=== PATIENT | male | born 1985 | race Caucasian/White ===

== ENCOUNTER 2018-05-06 10:50 | Emergency (ER) | payer BC ==
--- NOTE | 2018-05-06 12:05 | RAD ---
INDICATION: Right renal colic. COMPARISON: There are no relevant prior studies available for comparison. TECHNIQUE: A CT scan of the abdomen and pelvis was performed without intravenous and without oral contrast. Contiguous axial sections were obtained from the lung bases through the symphysis pubis. Images were reconstructed in the coronal and sagittal planes. FINDINGS: LUNG BASES: The lung bases are clear. No pleural effusion is present. LIVER: The liver is normal in size. No significant focal abnormality is seen on this noncontrast study. GALLBLADDER: No calcified gallstones are seen. BILE DUCTS: No intra or extrahepatic ductal distention is seen. SPLEEN: The spleen is normal in size without significant focal abnormality. PANCREAS: The pancreas is normal in size. No ductal distention or calcifications are seen. ADRENAL GLANDS: The adrenal glands are normal in size. KIDNEYS: The kidneys are normal in size. No renal calculi or hydronephrosis is seen. There are several calcifications within the pelvis on the left side limiting the exam slightly although no ureteral or bladder calculi are seen. AORTA: The aorta is normal in caliber without significant calcific plaque. LYMPH NODES: No significantly enlarged lymph nodes are seen. BOWEL: The stomach, small and large bowel appear nondistended. The appendix appears to be within normal limits. There are scattered diverticula within the colon. There is no evidence for diverticulitis or colitis. PELVIC ORGANS: No bladder wall thickening is seen. The prostate gland appears mildly enlarged. PERITONEUM: No free intraperitoneal air or fluid is seen. BONES: No significant focal osseous abnormality is seen. IMPRESSION: NO EVIDENCE FOR ACUTE FINDING.
--- NOTE | 2018-05-06 12:13 | RAD ---
INDICATION: Right testicular pain. COMPARISON: There are no relevant prior studies available for comparison. TECHNIQUE: Multiple real-time images of the testicles were obtained including color Doppler images and Doppler tracings. FINDINGS: The right testicle is mildly enlarged and heterogeneous in echogenicity. The left testicle appears to be within normal limits in size without focal abnormality. The right testicle measured 4.9 x 2.6 x 3.3 cm and the left testicle measured 1.1 x 2.6 x 2.4 cm. There is increased vascular flow throughout the right testicle. There appears to be normal vascular flow within the left testicle. There appears to be symmetric vascular flow to the epididymides. No hydrocele is present. There is a 1.5 cm left epididymal head cyst. IMPRESSION: HETEROGENEOUS SLIGHTLY ENLARGED RIGHT TESTICLE WITH INCREASED VASCULARITY. CONSIDER ORCHITIS LESS LIKELY A NEOPLASTIC PROCESS. RECOMMEND UROLOGIC CONSULTATION AND FOLLOW-UP ULTRASOUND STUDIES TO DEMONSTRATE RESOLUTION.
[2018-05-06 12:21] LABS: ABS Basophils 0 10^3/ul (0-0.2); ABS Eosinophils 0 10^3/ul (0-0.6); ABS Lymphocytes 1.3 10^3/ul (1.0-4.8); ABS Monocytes 0.7 10^3/ul (0-0.8); ABS Neutrophils 5.7 10^3/ul (1.5-7.7); ABS Nucleated RBC 0 10^3/ul; Eosinophil % 0.4 % (0-6); Hematocrit 40 % (42-52); Hemoglobin 13.8 g/dl (14.0-18.0); Lymphocyte % 17.1 % (25-47); Mean Corpuscular HGB Conc 34 g/dl (31-36); Mean Corpuscular Hemoglobin 31 pg (27-31); Mean Corpuscular Volume 90 fL (80-94); Mean Platelet Volume 8.6 um3 (7.4-10.4); Nucleated Red Blood Cells % 0.1; Platelet Count 194 10^3/ul (150-450); Red Blood Count 4.48 10^6/ul (4.00-5.40); Red Cell Distribution Width 13 % (10.5-15); White Blood Count 7.8 10^3/ul (3.5-10.8)
[2018-05-06 12:37] LABS: EGFR Non-African American 104.6 (>60)
[2018-05-06 12:42] LABS: Urine Appearance Clear; Urine Blood Negative (Negative); Urine Color Colorless; Urine Ketones Negative (Negative); Urine Protein Negative (Negative); Urine Specific Gravity 1.002 (1.010-1.030); Urine Urobilinogen Negative (Negative)
--- NOTE | 2018-05-06 12:50 | ED ---
GI/ HPI - HPI Summary HPI Summary: Patient is a 32 y/o M w/ c/o testicular discomfort and lower abdomen onsetting 11 days ago. He states that his son dropped a phone on his testicules and he has been experiencing discomfort since. He notes that his testicles feel swollen. Patient went to and states that he was told to come to ED for ultrasound. He reports that UA done at was negative. He denies burning/pain with urination or ejaculation. In room, associated severity is rated 3/10. On triage movement, sleeping on stomach is noted to aggravate Sx, nothing is reported to alleviate Sx. Home medications and allergies are reviewed. - History of Current Complaint Chief Complaint: EDAbdPain Time Seen by Provider: 05/06/18 11:09 Stated Complaint: ABD/TESTICULAR PAIN Hx Obtained From: Patient Onset/Duration: Started Days Ago - 11 days ago, Still Present Timing: Constant, Lasting Days - 11 days ago Current Severity: Mild - 3/10 Pain Intensity: 3 Additional Locations for Males: Testicles Associated Signs and Symptoms: Positive: Abdominal Pain - lower, Other: - No pain/burning with ejaculation, reports testicular swelling. Negative: Dysuria Aggravating Factor(s): Movement, Movement Alleviating Factor(s): Nothing - Allergy/Home Medications Allergies/Adverse Reactions: Allergies Allergy/AdvReac Type Severity Reaction Status Date / Time No Known Allergies Allergy Verified 05/06/18 11:03 Home Medications: Home Medications Albuterol inh POWDER (NF) [Proair Respiclick] 1 puff INH Q4H PRN 05/06/18 [ History Confirmed 05/06/18] PMH/Surg Hx/FS Hx/Imm Hx Sensory History: Denies: Hx Legally Blind, Hx Deafness Opthamlomology History: Denies: Hx Legally Blind EENT History: Denies: Hx Deafness - Surgical History Surgery Procedure, Year, and Place: wisdom teeth removed Infectious Disease History: No Infectious Disease History: Denies: Traveled Outside the [place] in Last 30 Days - Family History Known Family History: Negative: Blood Disorder - Social History Alcohol Use: Rare Substance Use Type: Reports: None Smoking Status (MU): Never Smoked Tobacco Review of Systems Positive: Abdominal Pain - lower Positive: pain - testicular , other - NEGATIVE: difficulty with ejaculation POSITIVE: testicular swelling . Negative: dysuria All Other Systems Reviewed And Are Negative: Yes Physical Exam - Summary Physical Exam Summary: Appearance: Well appearing, no pain distress Skin: warm, dry, reflects adequate perfusion Head/face: normal Eyes: EOMI, AMANDA ENT: normal Neck: supple, non-tender Respiratory: CTA, breath sounds present Cardiovascular: RRR, pulses symmetrical Abdomen: non-tender, soft Bowel: present Musculoskeletal: normal, strength/ROM intact Neuro: normal, sensory motor intact, A&Ox3 Genital Exam: mild tenderness over right testicle Triage Information Reviewed: Yes Vital Signs On Initial Exam: Initial Vitals Temp Pulse Resp BP Pulse Ox 99.8 F 90 14 142/96 99 05/06/18 10:59 05/06/18 10:59 05/06/18 10:59 05/06/18 10:59 05/06/18 10:59 Vital Signs Reviewed: Yes Diagnostics - Vital Signs Vital Signs Temp Pulse Resp BP Pulse Ox 05/06/18 10:59 99.8 F 90 14 142/96 99 - Laboratory Lab Results: Lab Results 05/06/18 05/06/18 05/06/18 Range/Units 12:09 12:09 12:32 WBC 7.8 (3.5-10.8) 10^3/ul RBC 4.48 (4.00-5.40) 10^6/ul Hgb 13.8 L (14.0-18.0) g/dl Hct 40 L (42-52) % MCV 90 (80-94) fL MCH 31 (27-31) pg MCHC 34 (31-36) g/dl RDW 13 (10.5-15) % Plt Count 194 (150-450) 10^3/ul MPV 8.6 (7.4-10.4) um3 Neut % (Auto) 73.6 (38-83) % Lymph % (Auto) 17.1 L (25-47) % [place] % (Auto) 8.5 H (0-7) % Eos % (Auto) 0.4 (0-6) % Baso % (Auto) 0.4 (0-2) % Absolute Neuts (auto) 5.7 (1.5-7.7) 10^3/ul Absolute Lymphs (auto) 1.3 (1.0-4.8) 10^3/ul Absolute Monos (auto) 0.7 (0-0.8) 10^3/ul Absolute Eos (auto) 0 (0-0.6) 10^3/ul Absolute Basos (auto) 0 (0-0.2) 10^3/ul Absolute Nucleated RBC 0 10^3/ul Nucleated RBC % 0.1 Sodium 141 (135-145) mmol/L Potassium 4.6 (3.5-5.0) mmol/L Chloride 109 (101-111) mmol/L Carbon Dioxide 27 (22-32) mmol/L Anion Gap 5 (2-11) mmol/L BUN 9 (6-24) mg/dL Creatinine 0.84 (0.67-1.17) mg/dL Est GFR ( Amer) 126.6 (>60) Est GFR (Non-Af Amer) 104.6 (>60) BUN/Creatinine Ratio 10.7 (8-20) Glucose 109 H (70-100) mg/dL Calcium 9.5 (8.6-10.3) mg/dL Total Bilirubin 0.30 (0.2-1.0) mg/dL AST 18 (13-39) U/L ALT 19 (7-52) U/L Alkaline Phosphatase 66 (34-104) U/L Total Protein 7.5 (6.4-8.9) g/dL Albumin 4.5 (3.2-5.2) g/dL Globulin 3.0 (2-4) g/dL Albumin/Globulin Ratio 1.5 (1-3) Lipase 27 (11.0-82.0) U/L Urine Color Colorless Urine Appearance Clear Urine pH 7.0 (5-9) Ur Specific [place] 1.002 L (1.010-1.030) Urine Protein Negative (Negative) Urine Ketones Negative (Negative) Urine Blood Negative (Negative) Urine Nitrate Negative (Negative) Urine Bilirubin Negative (Negative) Urine Urobilinogen Negative (Negative) Ur Leukocyte Esterase Negative (Negative) Urine Glucose Negative (Negative) Result Diagrams: 05/06/18 12:09 05/06/18 12:09 Lab Statement: Any lab studies that have been ordered have been reviewed, and results considered in the medical decision making process. - CT CT ABD/PEL CT Interpretation Completed By: Radiologist Summary of CT Findings: No evidence for acute findings, this report was reviewed by ED physician. - Ultrasound No standard instances Ultrasound Interpretation Completed By: Radiologist Summary of Ultrasound Findings: IMPRESSION: HETEROGENEOUS SLIGHTLY ENLARGED RIGHT TESTICLE WITH INCREASED VASCULARITY. CONSIDER ORCHITIS LESS LIKELY A NEOPLASTIC PROCESS. RECOMMEND UROLOGIC CONSULTATION AND. FOLLOW-UP ULTRASOUND STUDIES TO DEMONSTRATE RESOLUTION. THIS REPORT WAS REVIEWED BY ED PHYSICIAN. Re-Evaluation - Re-Evaluation First Eval Re-Evaluation Time: 13:30 Comment: Discussed results of labs and tests with patient. Patient will follow up with urologist in three days. Patient is agreeable with this plan. GIGU Course/Dx - Course Course Of Treatment: Patient is a 32 y/o M w/ c/o testicular discomfort and lower abdomen onsetting 11 days ago. He states that his son dropped a phone on his testicules and he has been experiencing discomfort since. He notes that his testicles feel swollen. Patient went to and states that he was told to come to ED for ultrasound. He reports that UA done at was negative. He denies burning/pain with urination or ejaculation. On phyiscal exam, patient is noted to have mild tenderness over right testicle. During ED course, patient received Motrin 600 mg, Vibramycin 100 mg, and Rocephin 250 mg. Bloodwork/UA was obtained. CT ABD/PEL showed no evidence for acute findings. Testicular US IMPRESSION: HETEROGENEOUS SLIGHTLY ENLARGED RIGHT TESTICLE WITH INCREASED VASCULARITY. CONSIDER ORCHITIS LESS LIKELY A NEOPLASTIC PROCESS. RECOMMEND UROLOGIC CONSULTATION AND. FOLLOW-UP ULTRASOUND STUDIES TO DEMONSTRATE RESOLUTION. Discussed results of labs and tests with patient. Patient will follow up with urologist in three days. Patient is agreeable with this plan. Dx of orchitis. - Diagnoses Differential Diagnoses - Male: Epididymitis, Ureteral Calculi, Urinary Tract Infection Provider Diagnoses: Orchitis Discharge - Sign-Out/Discharge Documenting (check all that apply): Patient Departure - discharge - Discharge Plan Condition: Stable Disposition: HOME Prescriptions: DOXYcycline CAP(*) [DOXYcycline 100MG CAP(*)] 100 mg PO BID #20 cap Ibuprofen TAB* [Motrin TAB* 600 MG] 600 mg PO Q8H PRN #15 tab MDD 3 PRN Reason: Pain Patient Education Materials: Orchitis (ED) Referrals: Carson Houser MD [Medical Doctor] - 3 Days Additional Instructions: FOLLOW UP WITH UROLOGIST IN THREE DAYS. RETURN TO ED FOR ANY NEW OR WORSENING SYMPTOMS. - Billing Disposition and Condition Condition: STABLE Disposition: Home - Attestation Statements Document Initiated by Scribe: Yes Documenting Scribe: Ramón Patiño Provider For Whom Sheryl is Documenting (Include Credential): Wolfgang Lynn MD Scribe Attestation: Ramón Dupree , scribed for Wolfgang Lynn MD on 05/06/18 at 1628. Scribe Documentation Reviewed: Yes Provider Attestation: The documentation as recorded by the Ramón beckham accurately reflects the service I personally performed and the decisions made by me, Wolfgang Lynn MD
[2018-05-06] MEDS ORDERED: cefTRIAXone VIAL(*) 250 MG VIAL IM ONE (13:36)
[2018-05-06] MEDS ORDERED: Ibuprofen TAB* 600 MG PO ONE (13:36)
[2018-05-06] MEDS ORDERED: DOXYcycline CAP(*) 100 MG PO ONE (13:36)
[2018-05-06] MEDS ORDERED: Lidocaine 1%* 5 ML VIAL ONE (13:48)
[2018-05-06 13:59] VITALS: BP 133/82
== END 2018-05-06 13:58 | disposition home or self-care (01) ==
LOC: ED 10:50
DX: N45.2 Orchitis (principal); R10.30 Lower abdominal pain, unspecified
CPT/HCPCS: 36415; 74176; 76870; 80053; 81003; 83690; 85025; 96372; 99282; A9270-GY; J0696